=== PATIENT | male | born 1985 | race Caucasian/White ===

== ENCOUNTER 2019-07-02 10:25 | Emergency (ER) | payer SELFPAY ==
[~2019-07-02] VITALS: Ht 157.5 cm; Wt 68.0 kg
[~2019-07-02 10:25] MED LIST: AUGMENTIN 875-1 EACH PO; NORCO 5-325 TA1 EACH PO
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
== END 2019-07-02 10:50 | disposition home or self-care (01) ==
LOC: ED 10:25
DX: M54.9 Dorsalgia, unspecified (principal)

== ENCOUNTER 2020-05-31 18:07 | Emergency (ER) | payer OTHER ==
[2020-05-31] MEDS ORDERED: ABILIFY10 MG PO (18:21)
[2020-05-31] MEDS ORDERED: CEPHALEXIN500 M1 PO (18:34)
[2020-05-31] MEDS ORDERED: INDOMETHACIN50 MG PO (18:34)
== END 2020-05-31 19:10 | disposition home or self-care (01) ==
LOC: ED 18:07
DX: L03.115 Cellulitis of right lower limb (principal); M12.9 Arthropathy, unspecified; E78.00 Pure hypercholesterolemia, unspecified; Z79.899 Other long term (current) drug therapy
CPT/HCPCS: 96372; 99283; J1885